=== PATIENT | female | born 1950 | race Caucasian/White ===

== ENCOUNTER 2021-06-18 08:41 | Day surgery (SDC) | payer MEDICARE ==
[~2021-06-18] VITALS: Ht 172.7 cm; Wt 75.0 kg
--- NOTE | ~2021-06-18 | OR ---
[facility] [address], [place] [address] Draft DATE OF OPERATION: 06/18/2021 SURGEON: Alvin Jolly MD PREOPERATIVE DIAGNOSIS: Right serous otitis media. POSTOPERATIVE DIAGNOSIS: Right serous otitis media. PROCEDURE: Right myringotomy ventilation tube insertion. ANESTHESIA: General LMA; Gigi LIPSCOMB. PREOPERATIVE HISTORY: Mrs. Chappell is a 70-year-old lady with right ear hearing loss due to middle ear effusion, this has been persistent for several months despite appropriate medications. She is taken to the operating room for the above-mentioned procedures. OPERATIVE PROCEDURE AND FINDINGS: After informed consent, the patient was taken to the operating room, placed in supine position, where general LMA anesthesia was induced. The patient and procedure were verified. Right ear was examined with the operating microscope. The eardrum was dull, retracted with the middle ear effusion. The anterior-inferior radial myringotomy was made. Serous middle ear effusion suctioned from the middle ear space. Palomo tube placed in myringotomy site. Ofloxacin ophthalmic drops applied to the ear canal with cotton ball in the meatus. The procedure was well tolerated. The patient was awakened, extubated, transported to the recovery room in good condition. COMPLICATIONS: No complications. BLOOD LOSS: Minimal. SPECIMEN: No specimens. PATIENT NAME: NORA CHAPPELL OPERATIVE REPORT DATE OF : 48 REPORT #: [id number] PHYSICIAN: ALVIN JOLLY MD PCP: PRECIOUS DAY DO REPORT IS CONFIDENTIAL AND NOT TO BE RELEASED WITHOUT AUTHORIZATION [address] [place] [address] Draft DRAINS: No drains. Alvin Jolly MD GC/SEBASTIAN /[id number] Copies: ~ PATIENT NAME: NORA CHAPPELL OPERATIVE REPORT DATE OF : 48 REPORT #: [id number] PHYSICIAN: ALVIN JOLLY MD PCP: PRECIOUS DAY DO REPORT IS CONFIDENTIAL AND NOT TO BE RELEASED WITHOUT AUTHORIZATION
[~2021-06-18 08:41] MED LIST: ADVAIR 100-501 EACH INH; AMBIEN10 MG PO; DIFLUCAN200 MG PO; DIFLUCAN50 MG PO; FLONASE SENSIM5.9 ML NS; IRON18 MG PO; PREMARIN0.625 MG PO; PROLENSA3 ML; SINGULAIR10 MG PO; SYNTHROID112 MCG PO; TRAMADOL HCL50 MG PO; VALIUM5 MG PO; VERAPAMIL ER180 MG PO; ZETIA10 MG PO; ZYRTEC10 MG PO
--- NOTE | 2021-06-18 09:49 | NUR ---
06/18/21 0949 Sheets,Janessa 0939 PT ARRIVED TO PACU WITH ORAL AIRWAY IN PLACE AND FUNDRAISING MANAGER DOING JAW THRUST. PT NONAROUSABLE. VSS. PT HEAD TURNED TO SIDE AND JAW THRUST NO LONGER NEEDED. 0944 PT WOKE AND ORAL AIRWAY REMOVED. O2 REMOVED.
--- NOTE | 2021-06-18 10:05 | NUR ---
PATIENT ASSESSMENT COMPLETE. PATIENT IS ALERT AND ORIENTED. BREATHING EQUAL AND UNLABORED. VITAL SIGNS DOCUMENTED WNL. PATIENT SURGICAL SITE IS CLEAN DRY AND INTACT. COTTON BALL AT BASE OF EAR. DENIES ANY PAIN OR NASEAU. PATIENT IS SIPPING ON WATER AND EATING PUDDING. IV SITE IS PATENT. NO QUESTIONS AT THIS TIME. BROTHER AT EDGE OF BED. CALL LIGHT WITHIN REACH NO FUTHER NEEDS.
--- NOTE | 2021-06-18 11:04 | NUR ---
PATIENT ASSESSMENT COMPLETE. PATIENT MET ALL DISCHARGE CRITERIA. PATIENT DENIES ANY PAIN OR NASEAU. VITAL SIGNS ARE WNL. PATIENT EDUCATION AND DISCHARGE INSTRUCTIONS GIVEN AND UNDERSTOOD. IV D/C'D WNL. PATIENT WAS PICKED UP BY BROTHER.
== END 2021-06-18 11:15 | disposition home or self-care (01) ==
LOC: DS 08:41 → OPS 08:41 → DS 11:30
PROVIDERS: ATTEND Otolaryngology
PROC: 099570Z Drainage of Right Middle Ear with Drainage Device, Via Natural or Artificial Opening (ICD-10-PCS; principal; 2021-06-18 09:30)
DX: H65.91 Unspecified nonsuppurative otitis media, right ear (principal); J44.9 Chronic obstructive pulmonary disease, unspecified; I10 Essential (primary) hypertension; Z20.822 Contact with and (suspected) exposure to COVID-19; Z88.0 Allergy status to penicillin; Z88.5 Allergy status to narcotic agent
CPT/HCPCS: J1100; J1885; J2250; J2405; J2704; J2765; J3010; J7121